=== PATIENT | male | born 1970 | race Caucasian/White ===

== ENCOUNTER → 2018-02-21 | Outpatient (CLI) | payer BC ==
--- NOTE | 2018-02-21 08:43 | CT ---
EXAMINATION TYPE: CT brain wo con DATE OF EXAM: 02/21/2018 COMPARISON: None HISTORY: left eyelid drooping CT DLP: 1090.[address] of the brain was performed. The ventricles, basal cisterns and sulci overlying the cerebral convexities demonstrate a normal appe arance. There is no evidence for intracranial hemorrhage or sulcal effacement. No mass effects are seen. Osseous calvarium is intact. If symptoms persist consider MRI as clinically warranted. IMPRESSION: 1. No acute intracranial process is seen at this time.
== END ==
LOC: RADCTMAIN 08:17
PROVIDERS: ATTEND Family Medicine
DX: H02.412 Mechanical ptosis of left eyelid (principal)
CPT/HCPCS: 70450

== ENCOUNTER → 2020-08-29 | Outpatient (CLI) | payer BC ==
--- NOTE | 2020-08-29 10:32 | P.STRESS ---
- Stress Test Note Stress Test Results/Findings: Exam Performed: stress echo exercise with con Exam Date: 08/29/20 Reason for Exam: abn ekg Height: 6 ft 4 in Weight: 250 kg Protocol: mimi Stage: 2 Duration of Exercise: 6 min Resting Heart Rate: 71 Resting Blood Pressure: 101/70 Maximum Achieved Heart Rate: 152 Maximum Achieved Blood Pressure: 206/63 85% PMHR: 144 100% PMHR: 169 METS: 7.1 Technologist Comment: Stress Test Results/Findings: This is a 50-year-old gentleman with history of hypertension and hypercholesterolemia and smoking history, being evaluated for cardiac status, because of abnormal EKG. Stress data: Baseline EKG showed sinus rhythm with normal [place] interval and QRS duration. Blood pressure at rest is 101/70 with pulse rate of 71. Patient walked on the Mimi protocol for 6 minutes achieving a maximum heart rate of 152 with a blood pressure of 206/53. EKGs taken during and after exercise did not reveal any significant changes from the baseline. Patient did not experience any chest pain. Echo data: Baseline echo images show normal wall motion and thickening. The test is done with contrast. Exercise echo images showed augmentation of wall motion and thickening in all segments. Final impression: #1. Negative stress test #2. Negative stress echo.
--- NOTE | 2020-08-30 11:56 | EST ---
Stress Test Results/Findings: Exam Performed: stress echo exercise with con Exam Date: 08/29/20 Reason for Exam: abn ekg Height: 6 ft 4 in Weight: 250 kg Protocol: mimi Stage: 2 Duration of Exercise: 6 min Resting Heart Rate: 71 Resting Blood Pressure: 101/70 Maximum Achieved Heart Rate: 152 Maximum Achieved Blood Pressure: 206/63 85% PMHR: 144 100% PMHR: 169 METS: 7.1 Technologist Comment: Stress Test Results/Findings: This is a 50-year-old gentleman with history of hypertension and hypercholesterolemia and smoking history, being evaluated for cardiac status, because of abnormal EKG. Stress data: Baseline EKG showed sinus rhythm with normal [place] interval and QRS duration. Blood pressure at rest is 101/70 with pulse rate of 71. Patient walked on the Mimi protocol for 6 minutes achieving a maximum heart rate of 152 with a blood pressure of 206/53. EKGs taken during and after exercise did not reveal any significant changes from the baseline. Patient did not experience any chest pain. Echo data: Baseline echo images show normal wall motion and thickening. The test is done with contrast. Exercise echo images showed augmentation of wall motion and thickening in all segments. Final impression: #1. Negative stress test #2. Negative stress echo. KORIN
== END | disposition home or self-care (01) ==
LOC: RADNMMAIN 08:49
PROVIDERS: ATTEND Family Medicine
DX: R94.31 Abnormal electrocardiogram [ECG] [EKG] (principal)
CPT/HCPCS: 93351; Q9950

== ENCOUNTER 2023-01-28 14:40 | Emergency (ER) | payer BC ==
--- NOTE | 2023-01-28 15:03 | ED ---
General Adult HPI - General Source: patient, RN notes reviewed Mode of arrival: ambulatory Limitations: no limitations <Mejia Pathak - Last Filed: 01/28/23 15:02> <Marcela Berrios - Last Filed: 01/29/23 02:32> - General Chief complaint: Neuro Symptoms/Deficit Stated complaint: numb tip of tongue Time Seen by Provider: 01/28/23 15:02 - History of Present Illness Initial comments: 52-year-old male presents emergency Department chief complaint of numbness at this time. Patient states that it started night. He states that has improved some. He states he started researching it and was Concerned that he may have strokelike symptoms. He states it's not left or right-sided time he states it's bilateral tip of his tongue. Patient denies any headache dizziness blurred vision nausea vomiting focal weakness chest pain palpitations. Patient does have a history of hypertension hyperlipidemia. (Mejia Pathak) This patient is a healthy 52-year-old gentleman who reports that he had a normal dinner he doesn't recall burning his tongue. He states that after dinner he took a little nap and when he woke up he felt like the tip of his tongue was numb. On exam the tip of his tongue looked a little bit red but was not painful abscess it felt numb had decreased sensation. Patient's been able to eat and drink he's had normal speech and swallowing. He's had no headaches no vision changes no facial asymmetry, no weakness in his extremities. He states that he figured he just give his tongue a few days to normalize however once he told his of the symptoms she is concerning for stroke and insisted he come to the hospital for evaluation. He also notes that he ran out of his medications on Saturday and has not been able to get them filled due to the think. He has not had any antihypertensives since before . (Marcela Berrios) - Related Data Allergies Allergy/AdvReac Type Severity Reaction Status Date / Time No Known Allergies Allergy Verified 01/28/23 14:51 Review of Systems ROS Other: All systems not noted in ROS Statement are negative. <Mejia Pathak - Last Filed: 01/28/23 15:02> ROS Other: All systems not noted in ROS Statement are negative. <Marcela Berrios P - Last Filed: 01/29/23 02:32> ROS Statement: Those systems with pertinent positive or pertinent negative responses have been documented in the HPI. Past Medical History Past Medical History: Hyperlipidemia, Hypertension History of Any Multi-Drug Resistant Organisms: None Reported Past Surgical History: Joint Replacement, Orthopedic Surgery Smoking Status: Light tobacco smoker Past Alcohol Use History: None Reported Past Drug Use History: None Reported <Mejia Pathak - Last Filed: 01/28/23 15:02> General Exam Limitations: no limitations <Mejia Pathak - Last Filed: 01/28/23 15:02> Limitations: no limitations General appearance: alert, in no apparent distress Head exam: Present: atraumatic, normocephalic Eye exam: Present: PERRL, EOMI ENT exam: Present: mucous membranes moist, other (The distal 1 cm of the tongue is somewhat erythematous) Neck exam: Present: full ROM. Absent: lymphadenopathy Respiratory exam: Absent: respiratory distress Cardiovascular Exam: Present: normal rhythm GI/Abdominal exam: Present: soft. Absent: distended Rectal exam: Present: deferred Extremities exam: Present: normal inspection, full ROM Neurological exam: Present: alert, oriented X3, CN II-XII intact, normal gait Psychiatric exam: Present: normal affect, normal mood <Marcela Berrios - Last Filed: 01/29/23 02:32> - General Exam Comments Initial Comments: Visual Physical Exam Vital signs reviewed General: Well-appearing, nontoxic, no acute distress. Head: Normocephalic, atraumatic Eyes: PERRLA, EOMI ENT: Airway patent Chest: Nonlabored breathing Skin: No visual rash, normal skin tone Neuro: Alert and oriented 3 Musculoskeletal: No gross abnormalities (Mejia Pathak) Course Vital Signs 01/28/23 01/28/23 14:47 22:09 Temperature 98.2 F 98.0 F Pulse Rate 104 H 85 Respiratory 20 17 Rate Blood Pressure 187/116 181/124 O2 Sat by Pulse 94 L 95 Oximetry Medical Decision Making <Mejia Pathak - Last Filed: 01/28/23 15:02> - Lab Data Result diagrams: 01/28/23 15:49 01/28/23 15:49 <Marcela Berrios - Last Filed: 01/29/23 02:32> - Medical Decision Making I completed the quick note portion of this chart signed Mejia Pathak PA-C (Mejia Pathak) Was pt. sent in by a medical professional or institution ([facility], [facility], urgent care, hospital, or assisted...) When possible be specific @ -No Did you speak to anyone other than the patient for history (EMS, parent, family, police, friend...)? What history was obtained from this source @ -No Did you review nursing and triage notes (agree or disagree)? Why? @ -I reviewed and agree with nursing and triage notes Were old charts reviewed (outside hosp., previous admission, EMS record, old EKG, old radiological studies, urgent care reports/EKG's, assisted records)? Report findings @ -Previous head CT was reviewed Differential Diagnosis (chest pain, altered mental status, abdominal pain women, abdominal pain men, vaginal bleeding, weakness, fever, dyspnea, syncope, headache, dizziness, GI bleed, back pain, seizure, CVA, palpatations, mental health)? @ -Differential includes trauma, inflammatory reaction, neuropathy, stroke of a single cranial nerve EKG interpreted by me (3pts min.). @ -As above X-rays interpreted by me (1pt min.). @ -None done CT interpreted by me (1pt min.). @ -No obvious mass, no edema or signs of recent stroke U/S interpreted by me (1pt. min.). @ -None done What testing was considered but not performed or refused? (CT, X-rays, U/S, labs)? Why? @ -None What meds were considered but not given or refused? Why? @ -None Did you discuss the management of the patient with other professionals (professionals i.e. [facility], [facility], lab, RT, psych nurse, administrator social welfare, lead programmer analyst, teacher, purchasing officer, lead case manager)? Give summary @ -No Was smoking cessation discussed for >3mins.? @ -No Was critical care preformed (if so, how long)? @ -No Were there social determinants of health that impacted care today? How? (Homelessness, low income, unemployed, alcoholism, drug addiction, transportation, low edu. Level, literacy, decrease access to med. care, custodial, rehab)? @ -No Was there de-escalation of care discussed even if they declined (Discuss DNR or withdrawal of care, Hospice)? DNR status @ -No What co-morbidities impacted this encounter? (DM, HTN, Smoking, COPD, CAD, Cancer, CVA, ARF, Chemo, Hep., AIDS, mental health diagnosis, sleep apnea, morbid obesity)? @ -None Was patient admitted / discharged? Hospital course, mention meds given and route, prescriptions, significant lab abnormalities, going to OR and other pertinent info. @ -Discharged She was seen and evaluated, history is obtained from patient. Patient had labs and head CT which were unremarkable. Exam shows the tip of his tongue is red I suspect there might of been some trauma from either burning and during dinner or something similar. Recommended continued supportive care and outpatient follow- up. Return parameters were discussed with patient was discharged home in stable condition. 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 Undiagnosed new problem with uncertain prognosis? @ -No Drug Therapy requiring intensive monitoring for toxicity (Heparin, Nitro, Insulin, Cardizem)? @ -No Were any procedures done? @ -No Diagnosis/symptom? @ -Tongue numbness Acute, or Chronic, or Acute on Chronic? @ -default Uncomplicated (without systemic symptoms) or Complicated (systemic symptoms)? @ -default Side effects of treatment? @ -No Exacerbation, Progression, or Severe Exacerbation? @ -No Poses a threat to life or bodily function? How? (Chest pain, USA, AR, pneumonia, PE, COPD, DKA, ARF, appy, cholecystitis, CVA, Diverticulitis, Homicidal, Suicidal, threat to staff... and all critical care pts) @ -No (Marcela Berrios) - Lab Data Lab Results 01/28/23 01/28/23 01/28/23 Range/Units 15:49 15:49 15:49 WBC 10.0 (3.8-10.6) k/uL RBC 5.57 (4.30-5.90) m/uL Hgb 17.5 (13.0-17.5) gm/dL Hct 50.7 (39.0-53.0) % MCV 91.1 (80.0-100.0) fL MCH 31.5 (25.0-35.0) pg MCHC 34.6 (31.0-37.0) g/dL RDW 12.8 (11.5-15.5) % Plt Count 312 (150-450) k/uL MPV 7.1 Neutrophils % 72 % Lymphocytes % 20 % Monocytes % 5 % Eosinophils % 2 % Basophils % 0 % Neutrophils # 7.2 (1.3-7.7) k/uL Lymphocytes # 2.0 (1.0-4.8) k/uL Monocytes # 0.5 (0-1.0) k/uL Eosinophils # 0.2 (0-0.7) k/uL Basophils # 0.0 (0-0.2) k/uL PT 10.0 (10.0-12.5) sec INR 0.9 (<1.2) APTT 26.7 (22.0-30.0) sec Sodium 138 (137-145) mmol/L Potassium 4.6 (3.5-5.1) mmol/L Chloride 101 (98-107) mmol/L Carbon Dioxide 24 (22-30) mmol/L Anion Gap 13 mmol/L BUN 16 (9-20) mg/dL Creatinine 0.75 (0.66-1.25) mg/dL Est GFR (CKD-EPI)AfAm >90 (>60 ml/min/1.73 sqM) Est GFR (CKD-EPI)NonAf >90 (>60 ml/min/1.73 sqM) Glucose 98 (74-99) mg/dL Calcium 10.2 (8.4-10.2) mg/dL Total Bilirubin 0.5 (0.2-1.3) mg/dL AST 31 (17-59) U/L ALT 38 (4-49) U/L Alkaline Phosphatase 69 (38-126) U/L Total Protein 7.9 (6.3-8.2) g/dL Albumin 4.6 (3.5-5.0) g/dL Disposition <Mejia Pathak M - Last Filed: 01/28/23 15:02> Is patient prescribed a controlled substance at d/c from ED?: No <Marcela Berrios - Last Filed: 01/29/23 02:32> Clinical Impression: Numbness of tongue, HTN (hypertension) Disposition: HOME SELF-CARE Condition: Stable Additional Instructions: Follow up with your primary care for re-evaluation in the next week Return for any worsening or development of new or concerning symptoms Referrals: Radha Rabago DO [Primary Care Provider] - 1-2 days
--- NOTE | 2023-01-28 16:18 | CT ---
EXAMINATION TYPE: CT brain wo con DATE OF EXAM: 01/28/2023 HISTORY: Numbness on tongue x [address] DLP: 1242.4 mGycm. Automated Exposure Control for Dose Reduction was Utilized. TECHNIQUE: CT scan of the head is performed without contrast. COMPARISON: Prior CT brain February 21, 2018. FINDINGS: There is no acute intracranial hemorrhage or midline shift identified. There is mild diff use ventricular and sulcal prominence redemonstrated. Park-white matter differentiation fairly well p reserved. No suspicious opacification of the mastoid air cells. The globes are intact and the visual ized sinuses are clear. IMPRESSION: No acute intracranial hemorrhage or midline shift. No significant change from recent wayne or CT.
[2023-01-28 16:31] LABS: Basophils % (A) 0 %; Eosinophils # (A) 0.2 k/uL (0-0.7); Eosinophils % (A) 2 %; HCT 50.7 % (39.0-53.0); HGB 17.5 gm/dL (13.0-17.5); Lymphocytes % (A) 20 %; MCH 31.5 pg (25.0-35.0); MCHC 34.6 g/dL (31.0-37.0); MCV 91.1 fL (80.0-100.0); Mean Platelet Volume 7.1; Monocytes # (A) 0.5 k/uL (0-1.0); Monocytes % (A) 5 %; Neutrophils # (A) 7.2 k/uL (1.3-7.7); Neutrophils % (A) 72 %; Platelet Count 312 k/uL (150-450); RBC 5.57 m/uL (4.30-5.90); RDW 12.8 % (11.5-15.5)
[2023-01-28 16:51] LABS: ALT 38 U/L (4-49); AST 31 U/L (17-59); African American GFR (CKD) >90 (>60 ml/min/1.73 sqM); Albumin 4.6 g/dL (3.5-5.0); Alkaline Phosphatase 69 U/L (38-126); Anion Gap 13 mmol/L; Blood Urea Nitrogen 16 mg/dL (9-20); Calcium 10.2 mg/dL (8.4-10.2); Carbon Dioxide 24 mmol/L (22-30); Chloride 101 mmol/L (98-107); Glucose 98 mg/dL (74-99); Non-African American GFR(CKD) >90 (>60 ml/min/1.73 sqM); Potassium 4.6 mmol/L (3.5-5.1); Sodium 138 mmol/L (137-145); Total Bilirubin 0.5 mg/dL (0.2-1.3); Total Protein 7.9 g/dL (6.3-8.2)
[2023-01-28 17:01] LABS: INR 0.9 (<1.2); Partial Thromboplastin Time 26.7 sec (22.0-30.0)
[2023-01-28] MEDS ORDERED: LOSARTAN 50 MG TAB PO STA (22:04)
[2023-01-28] MEDS ORDERED: amLODIPine 5 MG TAB PO STA (22:04)
[2023-01-28 22:28] VITALS: BP 181/124; PULSE 85; RESP 17; TEMP 98
== END 2023-01-28 22:15 | disposition home or self-care (01) ==
LOC: EC 14:40
DX: R20.0 Anesthesia of skin (principal); I10 Essential (primary) hypertension; F17.200 Nicotine dependence, unspecified, uncomplicated
CPT/HCPCS: 36415; 70450; 80053; 85025; 85610; 85730; 93005; 99285